=== PATIENT | male | born 2000 | race Hispanic/Latino ===

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

== ENCOUNTER 2021-01-21 22:24 | Emergency (ER) | payer MEDICAID ==
[2021-01-22 02:22] VITALS: BP 110/68
[2021-01-22] MEDS ORDERED: IBUPROFEN 600 MG TAB PO ONE (04:11)
[2021-01-22] MEDS ORDERED: TETANUS,DIPH,PERTUSS(ACELL) VACCINE 0.5 ML SYRINGE IM ONE (04:11)
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
== END 2021-01-22 05:25 | disposition home or self-care (01) ==
LOC: ED 22:24
DX: S61.031A Puncture wound without foreign body of right thumb without damage to nail, initial encounter (principal); S61.051A Open bite of right thumb without damage to nail, initial encounter; W50.3XXA Accidental bite by another person, initial encounter; Y93.89 Activity, other specified; Y92.89 Other specified places as the place of occurrence of the external cause; Y99.8 Other external cause status
CPT/HCPCS: 90471; 90715; 99283

== ENCOUNTER 2021-12-17 20:36 | Emergency (ER) | payer MEDICAID ==
[2021-12-17 21:03] VITALS: BP 122/72
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
== END 2021-12-18 01:00 | disposition home or self-care (01) ==
LOC: ED 20:36
DX: S01.112A Laceration without foreign body of left eyelid and periocular area, initial encounter (principal); W50.1XXA Accidental kick by another person, initial encounter; Y93.89 Activity, other specified; Y92.89 Other specified places as the place of occurrence of the external cause; Y99.8 Other external cause status
CPT/HCPCS: 99283